=== PATIENT | female | born 1975 | race Caucasian/White ===

== ENCOUNTER 2021-04-24 06:31 | Observation (INO) ==
[2021-04-24] MEDS ORDERED: ANCEF 1 GRAM IV PREMIX* 1 G/50 ML BAG IV ONE (06:42)
[2021-04-24] MEDS ORDERED: LR 1000 ML IV 1,000 ML IV ONE ×3 (06:42→09:26)
[2021-04-24] MEDS ORDERED: BETADINE SOLN ONE (06:51)
[2021-04-24] MEDS ORDERED: DECADRON INJ ONE (07:12)
[2021-04-24] MEDS ORDERED: BRIDION ONE (07:12)
[2021-04-24] MEDS ORDERED: DILAUDID INJ ONE ×2 (07:13→11:36)
[2021-04-24] MEDS ORDERED: FENTANYL INJ 100 mcg ONE (07:14)
[2021-04-24] MEDS ORDERED: OFIRMEV IV 1000 MG VIAL 1,000 MG/100 ML VIAL IV ONE (07:15)
[2021-04-24] MEDS ORDERED: ZEMURON 50 MG VIAL ONE (07:15)
[2021-04-24] MEDS ORDERED: NS 1000 ML 1,000 ML ONE (07:21)
[2021-04-24] MEDS ORDERED: KETALAR ONE (07:47)
[2021-04-24] MEDS ORDERED: ULTANE GAS IN ONE (07:47)
[2021-04-24] MEDS ORDERED: ZOFRAN INJ 4 MG VIAL ONE (07:47)
[2021-04-24] MEDS ORDERED: DIPRIVAN VIAL ONE (07:47)
[2021-04-24] MEDS ORDERED: XYLOCAINE 2 % (PLAIN) ONE (07:47)
[2021-04-24] MEDS ORDERED: TORADOL 30 MG VIAL ONE (07:47)
[2021-04-24] MEDS ORDERED: NEO-SYNEPHRINE INJ ONE (07:47)
[2021-04-24] MEDS ORDERED: LACRI-LUBE S.O.P. ONE (07:47)
[2021-04-24] MEDS ORDERED: EPHEDRINE SULFATE INJ ONE (07:47)
[2021-04-24] MEDS ORDERED: ROBINUL ONE (07:47)
[2021-04-24] MEDS ORDERED: BENADRYL INJ 50 MG VIAL IVP PRN ×2 (10:38→11:17)
[2021-04-24] MEDS ORDERED: PHENERGAN INJ 25 MG IM PRN ×2 (10:38→11:17)
[2021-04-24] MEDS ORDERED: BARHEMSYS INJ IVP PRN (10:38)
[2021-04-24] MEDS ORDERED: DILAUDID INJ IVP PRN (10:38)
[2021-04-24] MEDS ORDERED: ZOFRAN INJ 4 MG VIAL IVP PRN (11:17)
[2021-04-24] MEDS ORDERED: NORCO 5/325 MG TAB PO PRN (11:17)
[2021-04-24] MEDS ORDERED: TORADOL 30 MG VIAL IVP PRN ×2 (11:17→13:06)
[2021-04-24] MEDS ORDERED: TORADOL 30 MG VIAL IVP SCH (12:00)
[2021-04-24] MEDS: ZOFRAN INJ 4 MG VIAL IVP PRN ×2 (12:30→16:36)
[2021-04-24] MEDS: TORADOL 30 MG VIAL IVP SCH ×2 (12:45→17:30)
[2021-04-24] MEDS: D5 1/2 NS 1000 ML 1,000 ML IV SCH ×2 (14:33→20:41)
[2021-04-24] MEDS: PERCOCET TAB 5/325 MG PO PRN (23:52)
[2021-04-25] MEDS: TORADOL 30 MG VIAL IVP SCH (00:34)
[2021-04-25] MEDS: D5 1/2 NS 1000 ML 1,000 ML IV SCH ×2 (04:35→12:32)
[2021-04-25 05:18] LABS: BASOPHILS % (AUTO) 0.1 % (0.2-1.0); HEMATOCRIT 34.5 % (36.0-47.0); HEMOGLOBIN 11.9 g/dL (12.0-16.0); LYMPHOCYTES # (AUTO) 1.9 X10^3/uL (1.3-2.9); LYMPHOCYTES % (AUTO) 15.3 % (21.0-51.0); MEAN CORPUSCULAR HEMOGLOBIN 32.6 pg (27.0-34.0); MEAN CORPUSCULAR HGB CONC 34.6 g/dL (33.0-35.0); MEAN CORPUSCULAR VOLUME 94.3 fL (80.0-100.0); MEAN PLATELET VOLUME 9.5 fL (7.4-11.0); MONOCYTES % (AUTO) 7.8 % (0.0-13.0); NEUTROPHILS # (AUTO) 9.4 x10^3/uL (2.2-4.8); NEUTROPHILS % (AUTO) 76.8 % (42.0-75.0); PLATELET COUNT 265 X10^3/uL (150.0-450.0); RED BLOOD COUNT 3.66 X10^6/uL (3.5-5.4); RED CELL DISTRIBUTION WIDTH 12.9 % (11.6-16.5); WHITE BLOOD COUNT 12.2 X10^3/uL (3.6-10.0)
[2021-04-25 05:22] LABS: BLOOD UREA NITROGEN 8 mg/dL (7-18); CALCIUM 8.7 mg/dL (8.5-10.1); CARBON DIOXIDE 25.8 mmol/L (21-32); CHLORIDE 110 mmol/L (98-107); COR NA(FOR HYPERGLY) 145 mmol/L (136-145); SODIUM 144 mmol/L (136-145); eGFR NON BLACK RACES > 60 (>60)
--- NOTE | 2021-04-25 07:57 | NOTE.PGOBP ---
Progress note [employer] Post-op Subjective Data Subjective: No complaints, (+) flatus, no BM. Tolerating regular diet. No N/V. Ambulating well. Lau draining well. Pain well controlled by toradol/percocet. Objective Data Result Diagrams: 04/25/21 03:56 04/25/21 03:56 Objective Data: CV= RRR no MRG Lungs=CTA Bilaterally Abd=(+) BS, soft, ND, appropriately tender near incision. Bandage removed. Incision clean/dry/intact, no erythema, no bleeding, no discharge. Dermabond/Stitches intact. Ext= No edema, NT, No Cords. Graduated Compression Stockings/Sequential Compression Devices Bilaterally. Plan (1) Endometriosis: Plan: pelvic rest for 6 weeks. d/c home today (2) Post-op pain: (3) S/P hysterectomy:
[2021-04-25] MEDS: PERCOCET TAB 5/325 MG PO PRN (08:05)
[2021-04-25] MEDS ORDERED: TORADOL 30 MG VIAL IM PRN (11:16)
[2021-04-25] MEDS ORDERED: TORADOL 30 MG VIAL IVP PRN ×2 (11:16→11:19)
[2021-04-25 12:31] VITALS: BP 105/56
== END 2021-04-25 13:15 | disposition home or self-care (01) ==
LOC: SURG1 06:31 → EDUNIT# 07:30 → INTOOBSV 11:18 → MED/SURG 11:18
PROVIDERS: ADMIT Obstetrics & Gynecology; ATTEND Obstetrics & Gynecology
DX: N89.8 Other specified noninflammatory disorders of vagina; N80.0 Endometriosis of uterus; N92.5 Other specified irregular menstruation; R10.2 Pelvic and perineal pain